=== PATIENT | female | born 1975 | race Hispanic/Latino ===

== ENCOUNTER 2016-08-10 22:52 | Emergency (ER) | payer SELFPAY ==
[~2016-08-10] VITALS: Ht 147.3 cm; Wt 61.4 kg
[~2016-08-10 22:52] MED LIST: FERR324T11 PO; FLUT16SP NS; PNV1TABL57 PO
[2016-08-10 22:56] VITALS: BP 122/80; PULSE 73; RESP 16; O2SAT 97
--- NOTE | 2016-08-10 23:33 | ED.REPORT ---
HPI-URI / Cough / Cold Date of Service August 10, 2016 ED Provider: Natalio Liao MD Patient is a 41 year old female who presents to the ED complaining of a cough onset a week ago. Associated symptoms include fever and body aches. She reports that the cough is worse at night when she is trying to go to sleep. The patient was seen a week ago at the [facility] where she tested positive for the flu but her symptoms have not resolved. Nursing Notes Stated Complaint: BODY ACHES Chief Complaint: FLU/Cold Symptoms Nursing Notes Reviewed: Yes Allergies: Coded Allergies: No Known Allergies (Verified , 12/04/11) Scheduled FERROUS GLUCONATE-Expunged Drug, Do Not Renew (FERROUS GLUCONATE-Expunged Drug, Do Not Renew) 324 Mg Tablet 324 MG PO DAILY Fluticasone Propionate (Fluticasone Propionate Nasal) 16 Gm [place].susp 1 SPRAY NS BID PNV CMB#95/FERROUS FUMARATE/FA-Expunged Drug, (-Expunged Drug, Do Not Renew!) 1 Each Tablet 1 EACH PO DAILY General Time Seen by MD: 23:33 Chief Complaint Cough, non-productive Hx Obtained From: Patient, Daughter Arrived By: Walk-in Onset Occurred: 1 week ago Symptom Duration: Since onset Associated with: Reports: Fever Recent Healthcare: No recent hospitalization, Recent doctor visit Similar Sx Previous: Yes Past Medical History Past Medical History Notes: Anxiety Smoking History Never Smoker Social History Other Social History: Good social support Ambulatory Status Independent Review of Systems Review of Systems Note: body aches Basic Review of Systems Cardiovascular: No chest pain, No dyspnea on exertion, No palpitations Constitutional: Reports: Chills, Fever Respiratory: Reports: Non-productive cough, Denies: Pleuritic pain, Shortness of breath GI: Denies: Abdominal pain Skin: Denies Diaphoresis Neurologic: Denies: Abnormal movement Complete sys rev & neg: except as marked. Physical Exam Initial Vital Signs Vital Signs (First) Date Time Temp Pulse Resp B/P Pulse Ox O2 Delivery O2 Flow Rate FiO2 08/10/16 22:56 37.1 73 16 122/80 97 Room Air Initial VS: Reviewed General/Constitutional: Awake, Alert ENT: Atraumatic, Airway patent, Mucous membranes moist RESPIRATORY: faint wheezes and crackles in both bases Head / Eyes: Atraumatic, Normocephalic, PERRL, EOMI Neck: Atraumatic, Supple, Full range of motion Cardiovascular: Heart rate NL, Regular rhythm, Heart sounds NL Abdomen: Atraumatic, Soft, Non-tender Skin: Atraumatic, Color NL, No rash, Warm, Dry Neurologic: Oriented X3, Speech NL, No motor deficits, No sensory deficits Psychiatric: Affect NL, Mood NL Interpretation & Diagnostics X-Ray Chest Interpretation Chest Xray Interpretation: hazy over the left heart border suscipous for lower lobe pneumonia View: Portable, 1 view Interpretation / Wet Read by: Wet read ED physician Re-Eval/Medical Decision Med Decision/Clinical Course Pulmonary emboli rule out criteria met. Virchows triad is negative. Wells criteria is low risk. Low pretest probability. D-dimer testing is not indicated. Patient has documented influenza B and she has post-influenza pneumonia. She looks well. She is not hypoxic or tachypneic. She should do well with a macrolide and beta lactam combination. Close outpatient follow-up recommended Re-Evaluation/Progress : Time of Eval: 00:51 Re-Evaluation/Progress Note: Discussed X-ray results and plan for discharge. The patient understands and agrees to the plan for discharge. All questions were addressed. Counseled Regarding: Diagnosis, Lab results, Need for follow-up, When/why to return to ED Discharge & Departure Impression: Primary Impression: Pneumonia Pneumonia type: due to unspecified organism Laterality: left Lung location : lower lobe of lung Qualified Code: J18.1 - Lobar pneumonia, unspecified organism Disposition: Home Discharge Condition All VS Reviewed: Yes Condition: Stable Patient Instructions: Community Acquired Pneumonia (ED) Additional Instructions: The x-ray was suspicious for left lower lobe pneumonia. Take Amoxicillin 3 times daily for 5 days. Take Doxycycline twice daily for 5 days. Drink plenty of liquids. Albuterol 2 puffs every 6 hours as needed for cough and wheezing. Follow up on Friday with her primary care physician. Return if any problems or any new or worsening symptoms. Avoid direct sunlight while taking the doxycycline. Referrals: Martha Nguyen MD (PCP) Scribe Attestation Portions of this note were transcribed by Francisca Stinson. I, Dr. Liao personally performed the history, physical exam and medical decision-making; I reviewed and confirmed the accuracy of the information in the transcribed note. Signed by:Dina Perez, 08/11/16 and 0055 copies to: Martha Nguyen MD, Todd P DO August 10, 2016 23:33 Estella Stinson August 11, 2016 00:06
[2016-08-11] MEDS ORDERED: predniSONE 20 mg Tablet PO ONE (00:05)
[2016-08-11] MEDS ORDERED: Albuterol HFA 60 Puff 8 Gm Inhaler INHALATION PRN (00:05)
[2016-08-11] MEDS ORDERED: HYDROcodone-APAP 5-325 mg Tablet PO ONE (00:05)
[2016-08-11] MEDS ORDERED: _Proair 200 Puff/8.5 GM Inhaler INHALATION PRN (00:10)
[2016-08-11] MEDS ORDERED: Amoxicillin-Clav 875-125 mg Tablet PO ONE (00:45)
[2016-08-11 00:59] VITALS: BP 124/73; PULSE 74; RESP 20; O2SAT 98
--- NOTE | 2016-08-11 09:59 | DRSVH ---
PROCEDURE: X-RAY CHEST, TWO VIEWS ([id number]) INDICATIONS: fever and cough TECHNIQUE: 2 views of the chest were acquired. COMPARISON: [facility], CR, XR CHEST 2VW, 12/23/2014, 20:33. FINDINGS: Surgical changes and devices: None. Lungs and pleura: No pleural effusions or pneumothorax. There are slight low lung volumes with prob able vascular crowding in the lung bases. No definite focal consolidation. Mediastinum: Mediastinal contours are normal. Heart size is normal. Bones and chest wall: No suspicious bony abnormalities. Soft tissues appear unremarkable. IMPRESSION: 1. Slightly low lung volumes without definite consolidation to suggest pneumonia. Dictated by: Jose Luis Barraza M.D. on 08/11/2016 at 9:51 Approved by: Jose Luis Barraza M.D. on 08/11/2016 at 9:52
== END 2016-08-11 01:00 | disposition home or self-care (01) ==
LOC: SED 22:52
DX: J18.9 Pneumonia, unspecified organism (principal); R50.9 Fever, unspecified